=== PATIENT | male | born 1960 | race African-American/Black ===

== ENCOUNTER 2018-04-03 09:18 | Emergency (ER) | payer SELFPAY ==
[2018-04-03 09:48] VITALS: BP 130/72
[2018-04-03] MEDS ORDERED: OXYCODONE-ACETAMINOPHEN 5-325 MG TABLET PO ONE (10:11)
--- NOTE | 2018-04-03 10:17 | ER Document Report ---
ED General - General Chief Complaint: Other Stated Complaint: POSSIBLE DRUG WITHDRAWAL Time Seen by Provider: 04/03/18 09:51 TRAVEL OUTSIDE OF THE [place] IN LAST 30 DAYS: No - HPI Notes: Patient is a 58-year-old male that presents to the emergency department for chief complaint of back pain. Patient reports history of chronic back pain for the last few years. He took himself off of methadone at the beginning of February. He does report going through withdrawals for about 20 days and states those symptoms have resolved. Since being off the pain medication he has been taking Tylenol and ibuprofen with minimal relief. Patient denies any fevers, chills, numbness, weakness, saddle anesthesia. He denies history of new trauma or injury. He is able to ambulate but states it makes the pain worse. He states the pain is in his low back and radiates bilaterally down the back of both legs to just proximal to his knee. It is worse with movement and slightly relieved with sitting. He states this pain is in the same place as his chronic pain just more severe because he is not currently on pain medications. Past Medical History: Diabetes, hypertension, hyperlipidemia Past Surgical History: Left nephrectomy Social History: Former smoker, denies drugs and alcohol Family History: Reviewed and noncontributory for presenting illness Allergies: Reviewed, see documented allergy list. REVIEW OF SYSTEMS: CONSTITUTIONAL : No fever No chills No diaphoresis No recent illness EENT: No vision changes No congestion No sore throat CARDIOVASCULAR: No chest pain No palpitations RESPIRATORY: No shortness of breath No cough No difficulty breathing GASTROINTESTINAL: No abdominal pain No nausea No vomiting No diarrhea GENITOURINARY: No dysuria No hematuria No difficulty urinating MUSCULOSKELETAL: back pain No leg pain No arm pain SKIN: No rashes No lesions LYMPHATIC: No swollen, enlarged glands. NEUROLOGICAL: No lightheadedness No headache No weakness No paresthesias PSYCHIATRIC: No anxiety No depression PHYSICAL EXAMINATION: Vital signs reviewed, nursing noted reviewed. GENERAL: Well-appearing, well-nourished and in no acute distress. HEAD: Atraumatic, normocephalic. EYES: Eyes appear normal, extraocular movements intact, sclera anicteric, conjunctiva are normal. ENT: nares patent, oropharynx clear without exudates. Moist mucous membranes. NECK: Normal range of motion, supple without lymphadenopathy LUNGS: Breath sounds clear to auscultation bilaterally and equal. No wheezes rales or rhonchi. HEART: Regular rate and rhythm without murmurs ABDOMEN: Soft, nontender, normoactive bowel sounds. No rebound, guarding, or rigidity. No masses appreciated. EXTREMITIES: Nontender, good range of motion, no pitting or edema. Back: No midline tenderness or step-off. Pelvis stable. Bilateral lumbar paraspinal tenderness. Normal range of motion. No rashes or erythema. No crepitus. NEUROLOGICAL: No focal neurological deficits. Moves all extremities spontaneously Motor and sensory grossly intact on exam. PSYCH: Normal mood, normal affect. SKIN: Warm, Dry, normal turgor, no rashes or lesions noted on exposed skin - Related Data Allergies/Adverse Reactions: No Known Allergies Allergy (Verified 04/03/18 09:18) Past Medical History - Social History Smoking Status: Former Smoker Chew tobacco use (# tins/day): No Drug Abuse: Prescription drugs Family History: Reviewed & Not Pertinent Patient has suicidal ideation: No Patient has homicidal ideation: No - Past Medical History Cardiac Medical History: Reports: Hx Hypercholesterolemia, Hx Hypertension Endocrine Medical History: Reports: Hx Diabetes Mellitus Type 1 Renal/ Medical History: Denies: Hx Peritoneal Dialysis Psychiatric Medical History: Reports: Hx Depression - anxiety Past Surgical History: Reports: Hx Cholecystectomy, Hx Kidney (Renal Surgery) Review of Systems - Review of Systems Notes: dictated Physical Exam - Vital signs Vitals: Temp Pulse Resp BP Pulse Ox 98.7 F 112 H 20 130/72 H 96 04/03/18 09:46 04/03/18 09:46 04/03/18 09:46 04/03/18 09:46 04/03/18 09:46 - Notes Notes: Dictated Course - Re-evaluation Re-evalutation: 04/03/18 10:14 Vitals reviewed and stable. Patient afebrile and nontoxic. He is able to stand and ambulate with a cane with minimal imbalance. He has no signs of cauda equina syndrome or epidural abscess. This is his chronic pain which is exacerbated because of recently stopping his pain medications. Patient given percocet in the ED for pain control. He was offered a prescription for ibuprofen 600 or naproxen but declined. Patient encouraged to follow with his primary care doctor and he states he has an appointment in the next 2 weeks. He was discharged home in stable condition - Vital Signs Vital signs: Temp Pulse Resp BP Pulse Ox 98.7 F 112 H 20 130/72 H 96 04/03/18 09:46 04/03/18 09:46 04/03/18 09:46 04/03/18 09:46 04/03/18 09:46 Discharge - Discharge Clinical Impression: Acute exacerbation of chronic low back pain Condition: Stable Disposition: HOME, SELF-CARE Instructions: Chronic Pain Control ([facility]CLUDES THE [facility]), Chronic Back Pain (COUNT INCLUDES THE [facility]), Family Physicians / Practices Additional Instructions: Please return to the emergency department if you have any worsening, or concern of your symptoms. Please return to the emergency department if you develop chest pain, difficulty breathing, severe abdominal pain, or ongoing vomiting. Please follow-up with your primary care physician in 2-3 days and any other recommended physicians. If prescribed, take all medications as directed. If you have any questions or concerns do not hesitate to return the emergency department for evaluation.
== END 2018-04-03 10:43 | disposition home or self-care (01) ==
LOC: ER 09:18
DX: G89.29 Other chronic pain (principal); M54.5 Low back pain; Z79.899 Other long term (current) drug therapy; Z79.1 Long term (current) use of non-steroidal anti-inflammatories (NSAID); I10 Essential (primary) hypertension; Z87.891 Personal history of nicotine dependence; E10.9 Type 1 diabetes mellitus without complications
CPT/HCPCS: 99283

== ENCOUNTER 2018-12-29 17:27 | Emergency (ER) | payer MEDICAID ==
[2018-12-29] MEDS ORDERED: LIDOCAINE 2% VISCOUS SOLN 20 ML UDCUP PO ONE (17:42)
[2018-12-29] MEDS ORDERED: KETOROLAC TROMETHAMINE 60 MG/2 ML SDV IM ONE (17:46)
--- NOTE | 2018-12-29 17:51 | ER Document Report ---
HPI - HPI Time Seen by Provider: 12/29/18 17:41 Pain Level: 5 Notes: Patient is a 58-year-old male with a history of hypertension, hypercholesteremia, type 2 diabetes, peripheral neuropathy, chronic pain who presents to the ED complaining of left upper dental pain #14 and swelling that started x1 day. He has not noticed any obvious abscess or purulent discharge. Patient states that he is still able to eat and drink, but does have a decreased p.o. intake due to the pain. No other concerns or complaints. Denies any headache, fever, head injury, neck pain, hoarseness, drooling, URI, sore throat, chest pain, palpitations, syncope, cough, shortness of breath, wheeze, dyspnea, abdominal pain, nausea/vomiting/diarrhea, urinary retention, dysuria, hematuria, or rash. He has not schedule appoint with a dentist as of yet. - ROS Systems Reviewed and Negative: Yes All other systems reviewed and negative Past Medical History - Social History Smoking Status: Unknown if Ever Smoked Family History: Reviewed & Not Pertinent - Past Medical History Cardiac Medical History: Reports: Hx Hypercholesterolemia, Hx Hypertension Endocrine Medical History: Reports: Hx Diabetes Mellitus Type 1 Renal/ Medical History: Denies: Hx Peritoneal Dialysis Psychiatric Medical History: Reports: Hx Depression - anxiety Past Surgical History: Reports: Hx Cholecystectomy, Hx Kidney (Renal Surgery) Vertical Provider Document - CONSTITUTIONAL Agree With Documented VS: Yes Notes: PHYSICAL EXAMINATION: GENERAL: Well-appearing, well-nourished and in no acute distress. HEAD: Atraumatic, normocephalic. EYES: Pupils equal round and reactive to light, extraocular movements intact, sclera anicteric, conjunctiva are normal. ENT: EAC clear b/l. TM's intact b/l without erythema, fluid, or perforation. Nares patent and without discharge. oropharynx clear without exudates. No tonsilar hypertrophy or erythema. Moist mucous membranes. No sinus tenderness. Uvula midline. No palatine shift. No tongue protrusion. No respiratory compromise. Mouth: Poor dentition. + Severe decay and mild gingivitis. No obvious abscess or discharge noted. + mild left upper jaw swelling. + tenderness to fractured tooth #14. NECK: Normal range of motion, supple without lymphadenopathy. No rigidity/meningismus. LUNGS: Breath sounds clear to auscultation bilaterally and equal. No wheezes rales or rhonchi. HEART: Regular rate and rhythm without murmurs, rubs, gallops. NEUROLOGICAL: Cranial nerves grossly intact. Normal speech, normal gait. Normal sensory, motor exams PSYCH: Normal mood, normal affect. SKIN: Warm, Dry, normal turgor, no rashes or lesions noted. - INFECTION CONTROL TRAVEL OUTSIDE OF THE [place] IN LAST 30 DAYS: No Course - Re-evaluation Re-evalutation: 12/29/18 17:49 Patient is an afebrile, well-hydrated, 58-year-old male who presents to the ED with dental pain, suspect nerve root etiology versus infection. Vitals are acceptable. PE is otherwise unremarkable. No I&D, labs, or imaging warranted at this time based on H&P. Viscous lidocaine dispensed today. Toradol given IM. I will send him home with a prescription for cleocin. Low suspicion for any meningitis, sepsis, peritonsillar/pharyngeal abscess, respiratory compromise, Giovanni's, temporal arteritis, or other emergent systemic condition at this time. Patient is aware this condition can change from initial presentation and he needs to monitor symptoms closely. Conservative measures otherwise for symptoms. Call to schedule an appointment with a dentist for further evaluation and management. Recheck with your PCM this week as well. Return to the ED with any worsening/concerning symptoms otherwise as reviewed in discharge. Patient is in agreement. - Vital Signs Vital signs: Temp Pulse Resp BP Pulse Ox 98.0 F 96 15 140/68 H 95 12/29/18 17:33 12/29/18 17:33 12/29/18 17:33 12/29/18 17:33 12/29/18 17:33 Discharge - Discharge Clinical Impression: Pain, dental Condition: Stable Disposition: HOME, SELF-CARE Instructions: Toothache ([facility]), Clindamycin ([facility]) Additional Instructions: [place] and floss twice daily Maintain fluid intake Take antibiotics as directed Mouthwash, salt water gargles, peroxide rinse as needed Tylenol/ibuprofen as needed Recheck with PCM this week Call and schedule an appointment with your dentist for further evaluation Return to the ED with any worsening symptoms and/or development of fever, headache, facial swelling, swelling of lips/tongue/throat, trouble swallowing, drooling, hoarseness, neck pain/stiffness, chest pain, palpitations, syncope, shortness of breath, trouble breathing, abdominal pain, n/v/d, numbness/tingling, or other worsening symptoms that are concerning to you. Prescriptions: Clindamycin HCl [Cleocin 300 mg Capsule] 300 mg PO TID #30 capsule Forms: Elevated Blood Pressure Referrals: JESIKA WEINSTEIN PA-C [Primary Care Provider] - Follow up as needed [facility] [Provider Group] - Follow up in 3-5 days
[2018-12-29 18:32] VITALS: BP 102/58
== END 2018-12-29 18:59 | disposition home or self-care (01) ==
LOC: ER 17:27
DX: K08.9 Disorder of teeth and supporting structures, unspecified (principal); I10 Essential (primary) hypertension; E78.00 Pure hypercholesterolemia, unspecified; E11.9 Type 2 diabetes mellitus without complications; G89.29 Other chronic pain; G62.9 Polyneuropathy, unspecified; Z90.49 Acquired absence of other specified parts of digestive tract
CPT/HCPCS: 99282; 96372; J1885; J3490